=== PATIENT | female | born 1955 | race Caucasian/White ===

== ENCOUNTER → 2020-09-11 | Outpatient (CLI) | payer MEDICARE, OTHER ==
[~2020-09-11] MED LIST: ASPIRIN EC81 MG PO; BUSPAR 5MG TABLE5 MG PO; CALCIUM 1,0001 EACH PO; CARVEDILOL12.5 MG PO; CITALOPRAM HBR20 MG PO; COZAAR25 MG PO; DOK100 MG PO; FEROSUL325 MG PO; FISH OIL 1,0001 EACH PO; GLUCOPHAGE1000 MG PO; IMDUR ER TAB 3030 MG PO; LIPITOR TAB 2020 MG PO; NITROSTAT 0.40.4 MG SL; OMEPRAZOLE40 MG PO; PHENERGAN25 MG/1 ML PO; PLAVIX 75 MG TA75 MG PO; VISTARIL 25 MG25 MG PO; WELLBUTRIN SR150 M1 PO
== END ==
LOC: HEART 5 07:56
DX: R00.1 Bradycardia, unspecified (principal)

== ENCOUNTER → 2020-10-07 | Outpatient (CLI) | payer MEDICARE, OTHER | LOC: HEART 5 07:29 | DX: R07.9 Chest pain, unspecified (principal); R94.39 Abnormal result of other cardiovascular function study | CPT/HCPCS: 78452; A9502; J2785 ==

== ENCOUNTER → 2020-10-24 | Outpatient (CLI) | payer MEDICARE, OTHER ==
[2020-10-24 16:59] LABS: HEMOGLOBIN 11.2 gm/dl (12.3-15.3); RED BLOOD COUNT 3.8 M/UL (4.00-5.10); WHITE BLOOD COUNT 6.9 K/UL (4.5-11.0)
== END ==
LOC: LAB 16:28
PROVIDERS: Internal Medicine Interventional Cardiology
DX: I11.0 Hypertensive heart disease with heart failure (principal); R94.39 Abnormal result of other cardiovascular function study; I20.9 Angina pectoris, unspecified; R07.9 Chest pain, unspecified; E11.9 Type 2 diabetes mellitus without complications; E78.00 Pure hypercholesterolemia, unspecified; I50.9 Heart failure, unspecified
CPT/HCPCS: 80048; 85025; 85610; 85730

== ENCOUNTER → 2020-11-13 | Outpatient (CLI) | payer MEDICARE, OTHER ==
[2020-11-13 08:03] LABS: HEMOGLOBIN 10.1 gm/dl (12.3-15.3); RED BLOOD COUNT 3.5 M/UL (4.00-5.10); WHITE BLOOD COUNT 6.1 K/UL (4.5-11.0)
== END ==
LOC: CATH 11-11 10:00
PROVIDERS: Internal Medicine Interventional Cardiology
DX: R94.39 Abnormal result of other cardiovascular function study (principal); I10 Essential (primary) hypertension; E11.9 Type 2 diabetes mellitus without complications; Z87.891 Personal history of nicotine dependence
CPT/HCPCS: 80048; 82962; 85025; 85610; 85730; 93005; 99152; C1769; C1894; J1644; J3010; J7030; Q9965